=== PATIENT | female | born 1965 | race Caucasian/White ===

== ENCOUNTER 2017-07-27 13:49 | Emergency (ER) | payer BC ==
[2017-07-27 13:57] VITALS: BP 114/73
--- NOTE | 2017-07-27 14:07 | UC ---
Throat Pain/Nasal Jose HPI - HPI Summary HPI Summary: 51 year old female sinus pressure for 4 weeks that is not improving. She also has post nasal drip that is productive. Now with mouth / tooth pain and headahce with constant pressure despite use of OTC medication. - History of Current Complaint Chief Complaint: UCRespiratory Stated Complaint: THROAT,SINUS COMPLAINT Time Seen by Provider: 07/27/17 13:50 Hx Obtained From: Patient Hx Last Menstrual Period: 07/06/17 Onset/Duration: Gradual Onset Severity: Moderate Cough: Productive Associated Signs & Symptoms: Positive: Sinus Discomfort, Nasal Discharge - Allergies/Home Medications Allergies/Adverse Reactions: Allergies Allergy/AdvReac Type Severity Reaction Status Date / Time No Known Allergies Allergy Verified 07/27/17 13:56 PMH/Surg Hx/FS Hx/Imm Hx Previously Healthy: Yes - Surgical History Surgical History: None - Family History Known Family History: Positive: None - Social History Occupation: Employed Full-time Lives: With Family Alcohol Use: Rare Substance Use Type: None Smoking Status (MU): Never Smoked Tobacco - Immunization History Most Recent Influenza Vaccination: no Review of Systems Constitutional: Fever, Fatigue ENT: Sore Throat, Ear Ache, Nasal Discharge, Sinus Congestion, Sinus Pain/ Tenderness All Other Systems Reviewed And Are Negative: Yes Physical Exam Triage Information Reviewed: Yes Appearance: Well-Appearing, No Pain Distress, Well-Nourished Vital Signs: Initial Vital Signs Temp 98.4 F 07/27/17 13:53 Pulse 60 07/27/17 13:53 Resp 16 07/27/17 13:53 BP 114/73 07/27/17 13:53 Pulse Ox 100 07/27/17 13:53 Vital Signs Reviewed: Yes Eye Exam: Normal ENT Exam: Normal ENT: Positive: Pharynx normal, Nasal congestion, TM dull, Other: - bilateral maxillary and frontal sinus pressure and tendnerness to palpation. Negative: Tonsillar swelling, Tonsillar exudate Dental Exam: Normal Neck exam: Normal Neck: Positive: 1 Respiratory Exam: Normal Cardiovascular Exam: Normal Musculoskeletal Exam: Normal Neurological Exam: Normal Psychological Exam: Normal Skin Exam: Normal Throat Pain/Nasal Course/Dx - Course Course Of Treatment: advise to start claritin, flonase, netti pot and antibiotics at this time - Differential Dx/Diagnosis Differential Diagnosis/HQI/PQRI: Otitis Media, Pharyngitis, Sinusitis, Tonsillitis, URI Provider Diagnoses: bacterial maxillary Sinusitis Discharge - Discharge Plan Condition: Good Disposition: HOME Prescriptions: Amoxicillin/Clavulanate TAB* [Augmentin TAB 875*] 875 mg PO BID #20 tab Patient Education Materials: Sinusitis (ED) Referrals: Consuelo Harding MD [Primary Care Provider] - 3 Days
== END 2017-07-27 14:21 | disposition home or self-care (01) ==
LOC: UCCORT 13:49
DX: J32.0 Chronic maxillary sinusitis (principal); B96.89 Other specified bacterial agents as the cause of diseases classified elsewhere
CPT/HCPCS: 99212; G0463